=== PATIENT | female | born 1955 | race Caucasian/White ===

== ENCOUNTER 2023-02-27 12:54 | Emergency (ER) | payer MEDICARE, OTHER ==
[2023-02-27 13:27] LABS: Specific Gravity 1.012 (1.005-1.030); Urine Bacteria <20 /HPF (<20); Urine Bilirubin NEGATIVE (Negative); Urine Blood Negative (Negative); Urine Clarity Turbid (Clear); Urine Color Yellow (Yellow); Urine Glucose NEGATIVE (Negative); Urine Protein NEGATIVE (Negative); Urine RBC <5 /HPF (None Seen); Urine Urobilinogen Normal (Normal)
[2023-02-27 13:30] LABS: Absolute Lymphocytes (CBC) 1.1 K/uL (0.7-4.9); Hematocrit 41.6 % (36.0-45.0); Lymphocytes % 22.2 % (15.3-44.8); MCV 91.2 fL (80-100); MPV 6.7 fL (7.6-11.3); Platelets 268 thou/uL (152-406); RBC Red Blood Cell Count 4.57 M/uL (3.86-4.86)
[2023-02-27 13:44] LABS: Protime INR 0.93
[2023-02-27 13:47] LABS: Potassium 3.7 mEq/L (3.5-5.1); Troponin High Sensitivity 3.3 pg/mL (<58.9)
--- NOTE | 2023-02-27 14:12 | RAD REPORT ---
EXAM DESCRIPTION: CT - Head Brain Wo Cont - 02/27/2023 1:26 pm CLINICAL HISTORY: syncope vs seizure COMPARISON: No comparisons TECHNIQUE: Noncontrast head CT images were obtained without IV contrast. Multiplanar reformats were generated and reviewed. All CT scans are performed using dose optimization technique as appropriate and may include automated exposure control or mA/KV adjustment according to patient size. FINDINGS: No intracranial hemorrhage, mass, or edema. Midline structures are unremarkable. Normal ventricular caliber for age. Mild diffuse parenchymal volume loss. Ruiz-white matter differentiation is preserved, without evidence of acute infarct. No abnormal extra- axial fluid collections. Mastoid air cells and visualized portions of the paranasal sinuses are clear. No acute bony findings. IMPRESSION: No evidence of an acute intracranial process.
--- NOTE | 2023-02-27 14:27 | RAD REPORT ---
[facility]AM DES[facility]27/2023 2:18 pm CLINICAL HISTORY: syncope vs seizure COMPARISON: CHEST SINGLE VIEW dated 10/27/2013; CHEST SINGLE VIEW dated 06/03/2012; CHEST SINGLE VIEW dated 06/07/2002 TECHNIQUE: Portable AP view of the chest. FINDINGS: Hazy airspace opacification in the right lung base. Possible minimal opacification in the left lung base. No pneumothorax or effusion. The cardiomediastinal contours are unremarkable. IMPRESSION: Hazy right basilar and possible minimal left basilar airspace opacities, concerning for pneumonia.
[2023-02-27] MEDS ORDERED: CEFTRIAXONE 1000 MG/VIAL ONE (14:34)
--- NOTE | 2023-02-27 15:10 | ER ---
Nurse's Notes [facility] Name: Miri Linton Age: 67 yrs Sex: Female : 1955 Arrival Date: 02/27/2023 Time: 12:54 Bed 2 Private MD: Diagnosis: Epileptic seizures related to external causes, not intractable, without status epilepticus;Pneumonia, unspecified organism;UTI/ Urinary tract infection, site not specified Presentation: 02/27 13:03 Chief complaint: EMS states: toned out to [facility] ([place] for fall. Pt denies new ld1 pain. Unable to recall event prior to fall - reports having other disoriented moments prior to today. Coronavirus screen: At this time, the client does not indicate any symptoms associated with coronavirus-19. Ebola Screen: No symptoms or risks identified at this time. Initial Sepsis Screen: Does the patient meet any 2 criteria? No. Patient's initial sepsis screen is negative. Does the patient have a suspected source of infection? No. Patient's initial sepsis screen is negative. Risk Assessment: Do you want to hurt yourself or someone else? Patient reports no desire to harm self or others. Onset of symptoms was February 27, 2023. 13:03 Method Of Arrival: EMS: [facility] ld1 13:03 Acuity: [place] 3 ld1 Triage Assessment: 13:06 General: Appears in no apparent distress. comfortable, Behavior is calm, cooperative, ld1 appropriate for age. Pain: Denies pain. EENT: No signs and/or symptoms were reported regarding the EENT system. Neuro: Level of Consciousness is awake, alert, obeys commands, Oriented to person, place, time, situation, Appropriate for age. Cardiovascular: Capillary refill < 3 seconds Patient's skin is warm and dry. Respiratory: Airway is patent Respiratory effort is even, unlabored. GI: Abdomen is flat, non-distended. : No signs and/or symptoms were reported regarding the genitourinary system. Derm: No signs and/or symptoms reported regarding the dermatologic system. Musculoskeletal: No signs and/or symptoms reported regarding the musculoskeletal system. Historical: - Allergies: 13:06 No Known Allergies; ld1 - Home Meds: 13:06 Keppra Oral [Active]; ld1 - PMHx: 13:06 Seizure; Hypertensive disorder; ld1 - PSHx: 13:06 Baclofen pump; ld1 - Immunization history:: Adult Immunizations up to date. - Social history:: Smoking status: Patient denies any tobacco usage or history of. - Family history:: not pertinent. - Hospitalizations: : No recent hospitalization is reported. Screenin:15 [facility] ED Fall Risk Assessment (Adult) History of falling in the last 3 months, ld1 including since admission Yes- single mechanical fall (1 pt) Confusion or Disorientation Yes (5 pts) Mobility Assist Device Used Yes (1 pt). Abuse screen: Denies threats or abuse. Denies injuries from another. Nutritional screening: No deficits noted. Tuberculosis screening: No symptoms or risk factors identified. Assessment: 13:15 Reassessment: see triage assessment. ld1 14:15 Reassessment: Patient appears in no apparent distress at this time. No changes from ld1 previously documented assessment. Patient and/or family updated on plan of care and expected duration. Pain level reassessed. Patient is alert, oriented x 3, equal unlabored respirations, skin warm/dry/pink. 16:28 Reassessment: Patient appears in no apparent distress at this time. No changes from ld1 previously documented assessment. Patient and/or family updated on plan of care and expected duration. Pain level reassessed. Patient is alert, oriented x 3, equal unlabored respirations, skin warm/dry/pink. Patient denies pain at this time. Patient states feeling better. Vital Signs: 13:03 BP 144 / 91; Pulse 71; Resp 13; Temp 97.6(O); Pulse Ox 97% on R/A; Weight 71.67 kg; ld1 Height 5 ft. 5 in. ; Pain 0/10; 15:15 BP 129 / 76; Pulse 84; Resp 18; Pulse Ox 98% on R/A; ld1 16:28 BP 133 / 83; Pulse 87; Resp 18; Pulse Ox 97% on R/A; ld1 13:03 Body Mass Index 26.29 (71.67 kg, 165.1 cm) ld1 13:03 Pain Scale: Adult ld1 ED Course: 13:03 Patient arrived in ED. ld1 13:03 Cameron Durham MD is Attending Physician. rn 13:06 Triage completed. ld1 13:06 Arm band placed on right wrist. ld1 13:10 Rothman, Lizzy, RN is Primary Nurse. ld1 13:15 Patient has correct armband on for positive identification. Placed in gown. Bed in low ld1 position. Call light in reach. Side rails up X2. site monitor on. Pulse ox on. NIBP on. Door closed. Noise minimized. Warm blanket given. 13:15 No provider procedures requiring assistance completed. Maintain EMS IV. Dressing ld1 intact. Good blood return noted. Site clean \T\ dry. Gauge \T\ site: 20G RAC. 13:21 Inserted saline lock: 22 gauge in left antecubital area, using aseptic technique. ld1 ,using aseptic technique. ED staff. 13:27 CT Head Brain wo Cont In Process Unspecified. EDMS 13:28 Urinalysis w/ reflexes Sent. ld1 13:28 Troponin High Sensitivity Sent. ld1 13:28 Ptt, Activated Sent. ld1 13:28 CBC with Diff Sent. ld1 13:28 Basic Metabolic Panel Sent. ld1 13:28 Protime (+inr) Sent. ld1 13:28 ETOH Level Sent. ld1 14:20 Chest Single View XRAY In Process Unspecified. EDMS 16:28 IV discontinued, intact, bleeding controlled, No redness/swelling at site. ld1 Administered Medications: 13:37 Drug: NS 0.9% IV 500 ml Route: IV; Rate: bolus; Site: right antecubital; ld1 14:26 Drug: Rocephin IV 1 grams Route: IV; Rate: calculated rate; Site: right antecubital; ld1 15:26 Drug: Zithromax IVPB 500 mg Route: IVPB; Infused Over: 1 hrs; Site: left antecubital; ld1 Medication: 13:15 VIS not applicable for this client. ld1 Outcome: 15:09 Discharge ordered by . rn 16:28 Discharged to home ambulatory, with family. ld1 16:28 Condition: stable 16:28 Discharge instructions given to patient, family, Instructed on discharge instructions, follow up and referral plans. medication usage, Demonstrated understanding of instructions, follow-up care, medications, Prescriptions given X 2. 16:29 Patient left the ED. ld1 Signatures: Dispatcher [employer] EDMS Cameron Durham MD MD rn Sims, Lauren, VISHNU RN ld1
--- NOTE | 2023-02-27 15:10 | EDPHYS ---
Physician Documentation [facility] Name: Miri Linton Age: 67 yrs Sex: Female : 1955 Arrival Date: 02/27/2023 Time: 12:54 Bed 2 Private MD: ED Physician Cameron Durham HPI: 02/27 13:06 This 67 yrs old Female presents to ER via EMS with complaints of Fall Injury, Syncope, rn Altered Mental Status. 13:06 The patient presents with confusion. Onset: The symptoms/episode began/occurred today. rn Possible causes: unknown. Current symptoms: In the emergency department the patient's symptoms have improved. The patient has experienced similar episodes in the past. EMS reports witnessed syncopal episode and fall into car, had just completed art class at [employer], placed walker into vehicle. Pt doesn't remember anything that happened in parking lot. No recent illness/fever/vomiting/diarrhea. No pain or injury from fall. Pt with hx of seizures as well as recent episodes that she does not recall what just happened. . Historical: - Allergies: 13:06 No Known Allergies; ld1 - Home Meds: 13:06 Keppra Oral [Active]; ld1 - PMHx: 13:06 Seizure; Hypertensive disorder; ld1 - PSHx: 13:06 Baclofen pump; ld1 - Immunization history:: Adult Immunizations up to date. - Social history:: Smoking status: Patient denies any tobacco usage or history of. - Family history:: not pertinent. - Hospitalizations: : No recent hospitalization is reported. ROS: 13:06 Constitutional: Negative for fever, chills, and weight loss, Eyes: Negative for injury, rn pain, redness, and discharge, Neck: Negative for injury, pain, and swelling, Cardiovascular: Negative for chest pain, palpitations, and edema, Respiratory: Negative for shortness of breath, cough, wheezing, and pleuritic chest pain, Abdomen/GI: Negative for abdominal pain, nausea, vomiting, diarrhea, and constipation, Back: Negative for injury and pain, MS/Extremity: Negative for injury and deformity, Skin: Negative for injury, rash, and discoloration, Neuro: Negative for headache, weakness, numbness, tingling Exam: 13:06 Constitutional: This is a well developed, well nourished patient who is awake, alert, rn and in no acute distress. Head/Face: Normocephalic, linear abrasion right side of nose, no active bleeding Eyes: Pupils equal round and reactive to light, extra-ocular motions intact. Neck: No midline tenderness Chest/axilla: Normal chest wall appearance and motion. Nontender with no deformity. No lesions are appreciated. Cardiovascular: Regular rate and rhythm. No pulse deficits. Respiratory: No increased work of breathing, no retractions or nasal flaring. Abdomen/GI: Soft, non-tender MS/ Extremity: Pulses equal, no cyanosis. Neuro: Awake and alert, GCS 15, oriented to person, place, time, and situation. Cranial nerves II-XII grossly intact. Able to ambulate at her baseline with walker and assistance. Able to go to bathroom with minimal assistance. 13:47 ECG was reviewed by the Attending Physician. rn Vital Signs: 13:03 BP 144 / 91; Pulse 71; Resp 13; Temp 97.6(O); Pulse Ox 97% on R/A; Weight 71.67 kg; ld1 Height 5 ft. 5 in. ; Pain 0/10; 15:15 BP 129 / 76; Pulse 84; Resp 18; Pulse Ox 98% on R/A; ld1 16:28 BP 133 / 83; Pulse 87; Resp 18; Pulse Ox 97% on R/A; ld1 13:03 Body Mass Index 26.29 (71.67 kg, 165.1 cm) ld1 13:03 Pain Scale: Adult ld1 MDM: 13:03 Patient medically screened. rn 15:06 Differential Diagnosis: electrolyte abnormality, pneumonia, seizure, UTI, volume rn depletion, syncope. Data reviewed: vital signs, nurses notes, lab test result(s), radiologic studies, and as a result, I will discharge patient. Consideration of Admission/Observation Pt prefers to go home. Counseling: I had a detailed discussion with the patient and/or guardian regarding: the historical points, exam findings, and any diagnostic results supporting the discharge/admit diagnosis, lab results, radiology results, the need for outpatient follow up, to return to the emergency department if symptoms worsen or persist or if there are any questions or concerns that arise at home. Response to treatment: the patient's symptoms have markedly improved after treatment, the patient's condition has returned to base line, and as a result, I will discharge patient. ED course: Offered admission for pneumonia and UTI that likely lead to breakthrough seizure, patient states cannot stay has a sick dog at home that only she can care for, understands risks and prefers to go home with return precautions and abx. . 02/27 13:04 Order name: Basic Metabolic Panel; Complete Time: 14:19 rn 02/27 13:04 Order name: CBC with Diff; Complete Time: 14:19 rn 02/27 13:04 Order name: Protime (+inr); Complete Time: 14:19 rn 02/27 13:04 Order name: Ptt, Activated; Complete Time: 14:19 rn 02/27 13:04 Order name: Troponin High Sensitivity; Complete Time: 14:19 rn 02/27 13:04 Order name: Urinalysis w/ reflexes; Complete Time: 14:19 rn 02/27 13:04 Order name: ETOH Level; Complete Time: 14:19 rn 02/27 13:31 Order name: Urine Culture EDMS 02/27 13:04 Order name: CT Head Brain wo Cont; Complete Time: 14:19 rn 02/27 13:04 Order name: Chest Single View XRAY; Complete Time: 14:44 rn 02/27 13:04 Order name: EKG; Complete Time: 13:05 rn 02/27 13:04 Order name: Cardiac monitoring; Complete Time: 13:11 rn 02/27 13:04 Order name: EKG - Nurse/Tech; Complete Time: 13:37 rn 02/27 13:04 Order name: IV Saline Lock; Complete Time: 13:28 rn 02/27 13:04 Order name: Labs collected and sent; Complete Time: 13:28 rn 02/27 13:04 Order name: NPO; Complete Time: 13:10 rn 02/27 13:04 Order name: O2 Per Protocol; Complete Time: 13:10 rn 02/27 13:04 Order name: O2 Sat Monitoring; Complete Time: 13:10 rn EC:47 Rate is 67 beats/min. Rhythm is regular. QRS [place] is Normal. HI interval is normal. QRS rn interval is normal. QT interval is normal. No Q waves. T waves are Normal. No ST changes noted. Clinical impression: Normal ECG. Interpreted by me. Reviewed by me. Administered Medications: 13:37 Drug: NS 0.9% IV 500 ml Route: IV; Rate: bolus; Site: right antecubital; ld1 14:26 Drug: Rocephin IV 1 grams Route: IV; Rate: calculated rate; Site: right antecubital; ld1 15:26 Drug: Zithromax IVPB 500 mg Route: IVPB; Infused Over: 1 hrs; Site: left antecubital; ld1 Disposition Summary: 02/27/23 15:09 Discharge Ordered Location: Home rn Problem: new rn Symptoms: have improved rn Condition: Stable rn Diagnosis - Epileptic seizures related to external causes, not intractable, without status rn epilepticus - Pneumonia, unspecified organism rn - UTI/ Urinary tract infection, site not specified rn Followup: rn - With: Private Physician - When: As needed - Reason: Recheck today's complaints, Re-evaluation by your physician Discharge Instructions: - Discharge Summary Sheet rn - Community-Acquired Pneumonia, Adult rn - Seizure, Adult rn - Urinary Tract Infection, Adult rn Forms: - Medication Reconciliation Form rn - Thank You Letter rn - Antibiotic rn palliative - Prescription Opioid Use rn - Patient Portal Instructions rn Prescriptions: - Zithromax Z-George 250 mg Oral Tablet - take 1 tablet by ORAL route as directed for 5 days Day 1 - take two (2) tablets rn one time. Day 2, 3, 4 , 5 take one (1) tablet once daily.; 6 tablet; Refills: 0, Product Selection Permitted - cefpodoxime 100 mg Oral Tablet - take 2 tablets by ORAL route every 12 hours for 10 days take with food; 40 rn tablet; Refills: 0, Product Selection Permitted Signatures: Dispatcher [employer] Cameron Trejo MD MD rn Sims, Lauren, RN RN ld1
[2023-02-27] MEDS ORDERED: NA CHLORIDE 0.9% 250 ML ONE (15:30)
[2023-02-27] MEDS ORDERED: AZITHROMYCIN 500 MG INJ IVPB ONE (15:30)
[2023-02-27 16:54] VITALS: TEMP 97.6; O2SAT 97
[2023-02-27 16:55] VITALS: BP 133/83
--- NOTE | 2023-02-28 18:10 | EKG ---
Test Date: 2023-02-27 Test Time: 13:33:52 Manager Nuclear: Nupur SI MEASUREMENT RESULTS: Intervals: Rate: 67 AL: 186 QRSD: 78 QT: 412 QTc: 435 [place]: P: 80 AL: 186 QRS: 258 T: 69 INTERPRETIVE STATEMENTS: Normal sinus rhythm Normal ECG Compared to ECG 10/27/2013 14:12:59 No significant changes Electronically Signed On 02-28-23 18:09:15 CDT by Camacho Donato
== END 2023-02-27 16:29 | disposition home or self-care (01) ==
LOC: ER 12:54
DX: G40.509 Epileptic seizures related to external causes, not intractable, without status epilepticus (principal); J18.9 Pneumonia, unspecified organism; N39.0 Urinary tract infection, site not specified; I10 Essential (primary) hypertension
CPT/HCPCS: 93005; 87088; 85025; 81001; 87086; 80048; 36415; 85610; 85730; 84484; 70450; 71045; 99285; 82077; J7050; J0696; 87077; 87186